=== PATIENT | female | born 1935 ===

== ENCOUNTER 2022-05-06 06:52 | Observation (INO) ==
[~2022-05-06 06:52] MED LIST: Buffered Lidocaine 1% SYRIN 1 ml INTRADERM ONE; Lactated Ringers 1000 ml BAG 1,000 ML IV SCH
[2022-05-06] MEDS ORDERED: ceFAZolin 2 GM in NS PREMIX 2 GM/100 ML BAG IVPB ONE (06:57)
[2022-05-06] MEDS ORDERED: Naloxone 0.4 mg VIAL 0.4 mg/ml 1 ml VIAL IV PRN (08:16)
[2022-05-06] MEDS ORDERED: Acetaminophen IV 1 GM/100ML 1,000 MG/100 ML BAG IV PRN (08:16)
[2022-05-06] MEDS ORDERED: fentaNYL 100 mcg/2 ml 50 MCG/ML VIAL IV PRN (08:16)
[2022-05-06] MEDS ORDERED: Ondansetron 4 mg VIAL 2 MG/ML 2 ml VIAL IV PRN (08:16)
[2022-05-06] MEDS ORDERED: ROPIVACAINE 5 MG/ML 30 ML BTL (0.5%) ONE ×2 (08:25→08:47)
[2022-05-06] MEDS ORDERED: Ondansetron 4 mg VIAL 2 MG/ML 2 ml VIAL ONE (08:27)
[2022-05-06] MEDS ORDERED: Dexamethasone IV 4 MG/ML VIAL 1 ml VIAL ONE (08:27)
[2022-05-06] MEDS ORDERED: Propofol 10 MG/ML 20 ML BTL ONE (08:27)
[2022-05-06] MEDS ORDERED: fentaNYL 100 mcg/2 ml 50 MCG/ML VIAL ONE ×2 (08:27→12:49)
[2022-05-06] MEDS ORDERED: Lidocaine 2% PF 5 ML VIAL ONE (08:28)
[2022-05-06] MEDS ORDERED: Phenylephrine 40 mcg/mL 10mL (400mcg) SYRINGE ONE (09:37)
[2022-05-06] MEDS ORDERED: Glycopyrrolate IV 0.2 MG/ML 1 ML VIAL ONE (10:04)
[2022-05-06] MEDS ORDERED: HYDROmorphone 0.5 MG/0.5 ML SYRINGE ONE (10:04)
[2022-05-06] MEDS ORDERED: Phenylephrine IV 10 MG/ML 1 ml VIAL ONE (10:04)
[2022-05-06] MEDS ORDERED: Morphine 2 MG/ML SYRINGE IV PRN (10:28)
[2022-05-06] MEDS ORDERED: Ondansetron ODT 4 mg TAB 4 MG TAB PO PRN (10:28)
[2022-05-06] MEDS ORDERED: Lactulose 30 ml UDC PO PRN (10:28)
[2022-05-06] MEDS ORDERED: Magnesium Hydroxide LIQ 30 ML UDC PO PRN (10:28)
[2022-05-06] MEDS ORDERED: HYDROmorphone 1 MG/1 ML SYRINGE ONE (13:14)
[2022-05-06] MEDS: HYDROmorphone 1 MG/1 ML SYRINGE IV PRN ×5 (13:15→14:00)
[2022-05-06] MEDS: Ondansetron 4 mg VIAL 2 MG/ML 2 ml VIAL IV PRN ×2 (15:29→22:41)
[2022-05-06] MEDS: Lactated Ringers 1000 ml BAG 1,000 ML IV SCH (15:32)
[2022-05-06] MEDS: ceFAZolin 1 GM ADVAN 1 GM in NS 0.9% 50 ML 50 ML IVPB SCH (17:31)
[2022-05-06] MEDS ORDERED: Prochlorperazine 5 mg/ml 2 ml VIAL (10 mg) IV ONE (17:55)
[2022-05-06] MEDS: Magnesium Hydroxide LIQ 30 ML UDC PO SCH (20:13)
[2022-05-07] MEDS: ceFAZolin 1 GM ADVAN 1 GM in NS 0.9% 50 ML 50 ML IVPB SCH ×2 (01:30→10:02)
[2022-05-07] MEDS ORDERED: Prochlorperazine 5 mg/ml 2 ml VIAL (10 mg) IV ONE (02:49)
[2022-05-07] MEDS: Ondansetron 4 mg VIAL 2 MG/ML 2 ml VIAL IV PRN ×2 (03:24→08:15)
[2022-05-07] MEDS: Lactated Ringers 1000 ml BAG 1,000 ML IV SCH (05:03)
[2022-05-07 06:02] LABS: Hematocrit 31 % (35-47); Hemoglobin 10.5 g/dL (12.0-16.0); Mean Platelet Volume 7.6 fL (7.4-10.4); Platelet Count 170 10^3/uL (150-450)
[2022-05-07 06:16] LABS: Calcium 9.7 mg/dL (8.6-10.3); Potassium 4.6 mmol/L (3.5-5.0); eGFR CKD-EPI 83.7 (>60)
[2022-05-07] MEDS: Potassium Chlor 10 meq TAB PO SCH (08:22)
[2022-05-07] MEDS: Vitamin THERAPEUTIC TAB PO SCH (08:22)
[2022-05-07] MEDS: Magnesium Hydroxide LIQ 30 ML UDC PO SCH ×2 (08:25→20:40)
[2022-05-08 06:51] LABS: Hematocrit 30 % (35-47); Mean Platelet Volume 7.6 fL (7.4-10.4); Platelet Count 161 10^3/uL (150-450)
[2022-05-08 07:21] VITALS: BP 156/66
[2022-05-08] MEDS: Potassium Chlor 10 meq TAB PO SCH (09:50)
[2022-05-08] MEDS: Vitamin THERAPEUTIC TAB PO SCH (09:51)
[2022-05-08] MEDS: Magnesium Hydroxide LIQ 30 ML UDC PO SCH (09:51)
== END 2022-05-08 10:40 | disposition home or self-care (01) ==
LOC: AA 06:52 → INTOOBSV 06:52 → SSU 15:12
PROVIDERS: ADMIT Orthopaedic Surgery Adult Reconstructive Orthopaedic Surgery; ATTEND Orthopaedic Surgery Adult Reconstructive Orthopaedic Surgery